=== PATIENT | male | born 1945 | race Hispanic/Latino ===

== ENCOUNTER 2020-05-09 14:44 | Emergency (ER) | payer OTHER ==
[2020-05-09 15:21] LABS: BASOPHILS % (AUTO) 0.7 % (0.0-5.0); EOSINOPHILS % (AUTO) 3.9 % (0.0-8.0); LYMPHOCYTES % (AUTO) 25.1 % (21.0-51.0); MEAN CORPUSCULAR HEMOGLOBIN 29.7 pg (27.0-33.0); MEAN CORPUSCULAR HGB CONC 35.2 g/dL (32.0-36.0); MEAN CORPUSCULAR VOLUME 84.3 fL (79-99); MONOCYTES % (AUTO) 7.4 % (3.0-13.0); NEUTROPHILS % (AUTO) 62.3 % (40.0-77.0); PLATELET COUNT (AUTO) 254 K/uL (130-400); RED BLOOD CELL COUNT(AUTO) 4.98 MIL/uL (4.50-6.20); RED CELL DISTRIBUTION WIDTH 12.3 % (11.0-15.5); WHITE BLOOD COUNT (AUTO) 8.2 K/uL (4.8-10.8)
[2020-05-09 15:23] LABS: APPEARANCE,URINE Clear (CLEAR); BILIRUBIN,URINE Negative (NEGATIVE); COLOR,URINE Yellow (YELLOW); GLUCOSE, URINE (UA) 250 mg/dL (NEGATIVE); KETONES,URINE Negative (NEGATIVE); LEUKOCYTE ESTERASE ,URINE Negative (NEGATIVE); NITRATE,URINE Negative (NEGATIVE); OCCULT BLOOD,URINE Negative (NEGATIVE); PROTEIN,URINE Negative (NEGATIVE); UROBILINOGEN,URINE 0.2 mg/dL (0.2-1.0)
[2020-05-09 15:31] LABS: CREATININE 1.3 mg/dL (0.5-1.5); POTASSIUM 3.9 mmol/L (3.5-5.1)
[2020-05-09 15:35] LABS: ALBUMIN 3.9 g/dL (3.5-5.0); BACTERIA,URINE Rare /HPF (None Seen); BILIRUBIN,TOTAL 0.5 mg/dL (0.2-1.0); RBC,URINE 0-1 /HPF (0-1); SQUAMOUS EPITHELIAL CELL,UR Rare /HPF (0-2); TOTAL PROTEIN, SERUM 7.4 g/dL (6.0-8.3); WBC,URINE 0-1 /HPF (0-1)
== END 2020-05-09 17:08 | disposition home or self-care (01) ==
LOC: EDH 14:44
DX: G89.29 Other chronic pain (principal); R10.12 Left upper quadrant pain; R10.32 Left lower quadrant pain; E11.9 Type 2 diabetes mellitus without complications; I10 Essential (primary) hypertension
CPT/HCPCS: 36415; 74176; 80053; 81001; 83690; 84484; 85025; 93005

== ENCOUNTER → 2023-08-27 | Outpatient (CLI) | payer OTHER | END | disposition home or self-care (01) | LOC: RAH 10:00 | PROVIDERS: ATTEND Internal Medicine Cardiovascular Disease | DX: R07.9 Chest pain, unspecified (principal); I51.89 Other ill-defined heart diseases | CPT/HCPCS: 93306 ==

== ENCOUNTER → 2023-08-27 | Outpatient (CLI) | payer OTHER | END | disposition home or self-care (01) | LOC: RAH 12:07 | PROVIDERS: ATTEND Internal Medicine Cardiovascular Disease | DX: Z13.6 Encounter for screening for cardiovascular disorders (principal); R07.9 Chest pain, unspecified | CPT/HCPCS: 75571 ==

== ENCOUNTER → 2024-03-12 | Outpatient (CLI) | payer OTHER ==
[2024-03-12 10:14] LABS: INR <= 0.93 (0.85-1.15)
[2024-03-12 10:15] LABS: PARTIAL THROMBOPLASTIN TIME 33.8 SEC (26.3-35.5)
== END | disposition home or self-care (01) ==
LOC: RAH 08:55
PROVIDERS: ATTEND Family Medicine
DX: R59.0 Localized enlarged lymph nodes (principal)
CPT/HCPCS: 36415; 76882; 85610; 85730